=== PATIENT | male | born 1985 | race Two or more races ===

== ENCOUNTER 2017-03-10 22:52 | Emergency (ER) | payer OTHER ==
[~2017-03-10] VITALS: Ht 175.3 cm; Wt 63.5 kg
[2017-03-10 23:01] VITALS: BP 120/73
--- NOTE | 2017-03-11 00:40 | NUR ---
CALLED FOR TROOM ASSIGNMENT X3; NO ANSWER
--- NOTE | 2017-03-11 01:16 | NUR ---
STILL NOT IN LOBBY WHEN CALLED FOR ROOM ASSIGNMENT
== END 2017-03-11 01:17 | disposition left against medical advice (07) ==
LOC: ER 22:59
DX: Z53.21 Procedure and treatment not carried out due to patient leaving prior to being seen by health care provider (principal)
CPT/HCPCS: A4606; Z7610

== ENCOUNTER 2019-05-05 13:15 | Emergency (ER) | payer OTHER ==
[~2019-05-05] VITALS: Ht 175.3 cm; Wt 63.5 kg
--- NOTE | 2019-05-05 13:30 | NUR ---
SEEN AND EXAMINED BY JOE SINGLETON
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
[2019-05-05] MEDS ORDERED: LORAZEPAM 1 MG TABLET ONE (13:48)
[2019-05-05] MEDS ORDERED: LORAZEPAM 1 MG TABLET PO ONE (14:00)
[2019-05-05] MEDS ORDERED: IBUPROFEN 600 MG TABLET PO ONE ×2 (14:30→14:49)
--- NOTE | 2019-05-05 15:44 | NUR ---
Patient discharged in custody in stable condition. Written and verbal after care instructions given. Patient verbalizes understanding of instruction.
[2019-05-05 16:02] VITALS: BP 122/84
== END 2019-05-05 16:04 ==
LOC: ER 13:17
DX: F41.9 Anxiety disorder, unspecified (principal); F17.200 Nicotine dependence, unspecified, uncomplicated; Z60.2 Problems related to living alone
CPT/HCPCS: 71045-TC